=== PATIENT | male | born 1995 | race Caucasian/White ===

== ENCOUNTER 2023-03-12 09:39 | Inpatient (IN) | payer SELFPAY ==
[2023-03-12] MEDS ORDERED: Sodium Chloride 0.9% 10 ML Syringe FLUSH PRN ×2 (09:54→09:57)
[2023-03-12] MEDS ORDERED: Ondansetron 4 MG/2 ML SDV IVPUSH ONE ×2 (09:54→16:16)
[2023-03-12] MEDS ORDERED: Sodium Chloride 0.9% 1,000 ML IV STA (09:54)
[2023-03-12] MEDS ORDERED: HYDROmorphone 1 MG/ML Syringe IVPUSH ONE ×4 (09:55→16:31)
[2023-03-12] MEDS ORDERED: Iopamidol 612 MG/ML 100 ML Bottle IVPUSH ONE ×2 (09:57→15:22)
[2023-03-12 10:02] LABS: BASOPHILS ABSOLUTE AUTO 0.03 K/mm3 (0.01-0.08); BASOPHILS PERCENT AUTO 0.3 % (0.1-1.2); EOSINOPHILS ABSOLUTE AUTO 0.08 K/mm3 (0.04-0.54); EOSINOPHILS PERCENT AUTO 0.7 (0.8-7.0); HEMATOCRIT 50.7 % (40.1-51.0); HEMOGLOBIN 16.9 gm/dl (13.7-17.5); IMMATURE GRAN ABSOLUTE AUTO 0.06 K/mm3 (0.00-0.10); IMMATURE GRAN PERCENT AUTO 0.5 % (<=1.0); LYMPHOCYTES ABSOLUTE AUTO 1.71 K/mm3 (1.32-3.57); LYMPHOCYTES PERCENT AUTO 14.8 % (21.8-53.1); MEAN CORPUSCULAR HEMOGLOBIN 31.4 pg (25.7-32.2); MEAN CORPUSCULAR HGB CONC 33.3 g/dl (32.2-35.5); MEAN CORPUSCULAR VOLUME 94.2 fl (79.0-92.2); MEAN PLATELET VOLUME 9.5 fl (9.4-12.3); MONOCYTES ABSOLUTE AUTO 1.97 K/mm3 (0.30-0.82); NEUTROPHILS ABSOLUTE AUTO 7.74 K/mm3 (1.78-5.38); NEUTROPHILS PERCENT AUTO 66.7 % (34.0-67.9); PLATELET COUNT,PLT 486 K/mm3 (163-337); RED BLOOD CELL COUNT 5.38 M/mm3 (4.63-6.08); WHITE BLOOD CELL COUNT,WBC 11.59 K/mm3 (4.23-9.07)
[2023-03-12 10:22] LABS: A/G RATIO 0.9 (1-2); ALBUMIN 3.7 g/dl (3.4-5.0); ANION GAP 19.8 (5-15); BILIRUBIN TOTAL 0.9 mg/dL (0.2-1.0); BUN/CREATININE RATIO 5.6 (14-18); CALCIUM 9.4 mg/dL (8.5-10.1); CREATININE 0.9 mg/dL (0.7-1.3); EST CRCL DRUG DOSING (CG) 132.93 mL/min; POTASSIUM,K 3.8 mEq/L (3.5-5.1); PROTEIN TOTAL,TP 7.7 g/dl (6.4-8.2)
[2023-03-12 10:59] LABS: SLIDE REVIEW ABNORMAL SMEAR
[2023-03-12] MEDS ORDERED: Metoclopramide 10 MG/2 ML SDV IVPUSH ONE (11:04)
[2023-03-12 12:07] LABS: APPEARANCE,URINE CLEAR (Clear); BILIRUBIN,URINE 1+ (Negative); COLOR,URINE YELLOW (Yellow); GLUCOSE,URINE NEGATIVE (Negative); KETONES,URINE 1+ (Negative); LEUKOCYTE ESTERASE,URINE NEGATIVE (Negative); NITRITE,URINE NEGATIVE (Negative); OCCULT BLOOD,URINE TRACE-INTACT (Negative); PH,URINE 5.5 (5.0-8.0); PROTEIN,URINE 2+ (Negative); UROBILINOGEN,URINE 0.2 (0.2-1.0)
[2023-03-12 12:27] LABS: BACTERIA,URINE FEW /hpf (FEW); MUCUS,URINE MANY /hpf (FEW); RBC,URINE 0-5 /hpf (0-5); SQUAMOUS EPITHELIAL CELLS,UR 0-5 /hpf (0-5); WBC,URINE 0-5 /hpf (0-5)
[2023-03-12] MEDS ORDERED: Sodium Chloride 0.9% 1,000 ML IV ONE (12:46)
[2023-03-12] MEDS ORDERED: fentaNYL 100 MCG/2 ML SDV IVPUSH ONE ×2 (14:29→16:16)
[2023-03-12] MEDS: Lactated Ringers 1,000 ML IV SCH ×2 (14:44→21:49)
[2023-03-12] MEDS ORDERED: Naloxone 0.4 MG/ML SDV IVPUSH PRN (16:39)
[2023-03-12] MEDS ORDERED: HYDROmorphone 1 MG/ML Syringe IVPUSH PRN (16:39)
[2023-03-12] MEDS ORDERED: LORazepam 2 MG/ML SDV IVPUSH ONE (17:15)
[2023-03-12] MEDS: Heparin Sodium 5,000 Units/ML Vial SUBCUT SCH (18:17)
[2023-03-12] MEDS: HYDROmorphone 1 MG/ML Syringe IVPUSH PRN ×2 (20:05→22:45)
[2023-03-12] MEDS: Ondansetron 4 MG/2 ML SDV IV PRN (20:13)
[2023-03-12] MEDS: LORazepam 2 MG/ML SDV IVPUSH PRN (21:53)
[2023-03-13] MEDS: Ondansetron 4 MG/2 ML SDV IV PRN ×3 (00:23→20:40)
[2023-03-13] MEDS: HYDROmorphone 1 MG/ML Syringe IVPUSH PRN ×10 (01:21→23:32)
[2023-03-13] MEDS: Heparin Sodium 5,000 Units/ML Vial SUBCUT SCH ×3 (01:23→17:44)
[2023-03-13] MEDS: LORazepam 2 MG/ML SDV IVPUSH PRN ×5 (03:52→20:40)
[2023-03-13] MEDS ORDERED: Metoprolol Tartrate 25 MG Tab PO ONE (04:10)
[2023-03-13] MEDS: Lactated Ringers 1,000 ML IV SCH ×5 (04:25→23:04)
[2023-03-13 05:31] LABS: BASOPHILS ABSOLUTE AUTO 0.02 K/mm3 (0.01-0.08); BASOPHILS PERCENT AUTO 0.1 % (0.1-1.2); EOSINOPHILS PERCENT AUTO 0 (0.8-7.0); HEMATOCRIT 55.5 % (40.1-51.0); HEMOGLOBIN 18.2 gm/dl (13.7-17.5); IMMATURE GRAN ABSOLUTE AUTO 0.04 K/mm3 (0.00-0.10); IMMATURE GRAN PERCENT AUTO 0.3 % (<=1.0); LYMPHOCYTES ABSOLUTE AUTO 0.99 K/mm3 (1.32-3.57); LYMPHOCYTES PERCENT AUTO 7.1 % (21.8-53.1); MEAN CORPUSCULAR HEMOGLOBIN 31.3 pg (25.7-32.2); MEAN CORPUSCULAR HGB CONC 32.8 g/dl (32.2-35.5); MEAN CORPUSCULAR VOLUME 95.5 fl (79.0-92.2); MEAN PLATELET VOLUME 10.3 fl (9.4-12.3); MONOCYTES ABSOLUTE AUTO 1.89 K/mm3 (0.30-0.82); MONOCYTES PERCENT AUTO 13.5 % (5.3-12.2); NEUTROPHILS ABSOLUTE AUTO 11.04 K/mm3 (1.78-5.38); RED BLOOD CELL COUNT 5.81 M/mm3 (4.63-6.08); WHITE BLOOD CELL COUNT,WBC 13.98 K/mm3 (4.23-9.07)
[2023-03-13 05:38] LABS: PLATELET COUNT,PLT 346 K/mm3 (163-337)
[2023-03-13 06:22] LABS: A/G RATIO 0.8 (1-2); ALBUMIN 2.9 g/dl (3.4-5.0); ANION GAP 14.1 (5-15); BILIRUBIN TOTAL 1.4 mg/dL (0.2-1.0); CALCIUM 9.3 mg/dL (8.5-10.1); EST CRCL DRUG DOSING (CG) 119.63 mL/min; MAGNESIUM 1.4 mg/dL (1.8-2.4); POTASSIUM,K 5.1 mEq/L (3.5-5.1); PROTEIN TOTAL,TP 6.6 g/dl (6.4-8.2)
[2023-03-13 06:29] LABS: SLIDE REVIEW ABNORMAL SMEAR
[2023-03-13] MEDS ORDERED: Losartan 50 MG Tab PO SCH (09:00)
[2023-03-13] MEDS: Pantoprazole 40 MG Tab.CR PO SCH (09:03)
[2023-03-13] MEDS: Losartan 50 MG Tab PO SCH (09:03)
[2023-03-13] MEDS ORDERED: Propranolol 60 MG Cap.ER PO ONE (16:23)
[2023-03-13] MEDS ORDERED: Lactated Ringers 500 ML IV ONE (19:36)
[2023-03-13] MEDS: Venlafaxine 37.5 MG Cap.ER PO SCH (20:03)
[2023-03-14] MEDS: Heparin Sodium 5,000 Units/ML Vial SUBCUT SCH ×3 (01:25→17:58)
[2023-03-14] MEDS: HYDROmorphone 1 MG/ML Syringe IVPUSH PRN ×7 (01:26→20:56)
[2023-03-14] MEDS: LORazepam 2 MG/ML SDV IVPUSH PRN ×4 (01:27→17:58)
[2023-03-14] MEDS: Ondansetron 4 MG/2 ML SDV IV PRN ×4 (01:28→21:06)
[2023-03-14] MEDS: Lactated Ringers 1,000 ML IV SCH ×4 (04:58→22:31)
[2023-03-14 05:23] LABS: BASOPHILS ABSOLUTE AUTO 0.05 K/mm3 (0.01-0.08); BASOPHILS PERCENT AUTO 0.3 % (0.1-1.2); EOSINOPHILS ABSOLUTE AUTO 0.07 K/mm3 (0.04-0.54); EOSINOPHILS PERCENT AUTO 0.5 (0.8-7.0); HEMATOCRIT 43.9 % (40.1-51.0); IMMATURE GRAN PERCENT AUTO 0.7 % (<=1.0); LYMPHOCYTES ABSOLUTE AUTO 1.48 K/mm3 (1.32-3.57); LYMPHOCYTES PERCENT AUTO 10.1 % (21.8-53.1); MEAN CORPUSCULAR HEMOGLOBIN 31.3 pg (25.7-32.2); MEAN CORPUSCULAR HGB CONC 31.4 g/dl (32.2-35.5); MEAN CORPUSCULAR VOLUME 99.5 fl (79.0-92.2); MEAN PLATELET VOLUME 10.6 fl (9.4-12.3); MONOCYTES ABSOLUTE AUTO 1.82 K/mm3 (0.30-0.82); MONOCYTES PERCENT AUTO 12.4 % (5.3-12.2); NEUTROPHILS ABSOLUTE AUTO 11.16 K/mm3 (1.78-5.38); PLATELET COUNT,PLT 285 K/mm3 (163-337); RED BLOOD CELL COUNT 4.41 M/mm3 (4.63-6.08); WHITE BLOOD CELL COUNT,WBC 14.68 K/mm3 (4.23-9.07)
[2023-03-14 05:29] LABS: HEMOGLOBIN 13.8 gm/dl (13.7-17.5)
[2023-03-14 05:51] LABS: A/G RATIO 0.7 (1-2); ALBUMIN 2.3 g/dl (3.4-5.0); ANION GAP 11.2 (5-15); BILIRUBIN TOTAL 1.6 mg/dL (0.2-1.0); CALCIUM 8.5 mg/dL (8.5-10.1); CREATININE 1.4 mg/dL (0.7-1.3); EST CRCL DRUG DOSING (CG) 85.45 mL/min; MAGNESIUM 1.1 mg/dL (1.8-2.4); POTASSIUM,K 4.2 mEq/L (3.5-5.1); PROTEIN TOTAL,TP 5.4 g/dl (6.4-8.2)
[2023-03-14 06:24] LABS: SLIDE REVIEW ABNORMAL SMEAR
[2023-03-14] MEDS: Losartan 50 MG Tab PO SCH (08:24)
[2023-03-14] MEDS: Propranolol 20 MG Tab PO SCH ×2 (08:24→20:54)
[2023-03-14] MEDS: Pantoprazole 40 MG Tab.CR PO SCH (08:24)
[2023-03-14] MEDS ORDERED: Magnesium Sulfate/Water 2 GM in Premix Bag 1 BAG IV ONE (09:00)
[2023-03-14] MEDS: Venlafaxine 37.5 MG Cap.ER PO SCH (20:54)
[2023-03-15] MEDS: HYDROmorphone 1 MG/ML Syringe IVPUSH PRN ×3 (00:25→13:37)
[2023-03-15] MEDS: Heparin Sodium 5,000 Units/ML Vial SUBCUT SCH ×3 (01:11→18:10)
[2023-03-15] MEDS: Lactated Ringers 1,000 ML IV SCH ×3 (02:57→18:10)
[2023-03-15] MEDS: LORazepam 2 MG/ML SDV IVPUSH PRN ×5 (03:23→22:14)
[2023-03-15] MEDS: Ondansetron 4 MG/2 ML SDV IV PRN ×5 (03:24→22:15)
[2023-03-15 05:30] LABS: BASOPHILS ABSOLUTE AUTO 0.03 K/mm3 (0.01-0.08); BASOPHILS PERCENT AUTO 0.3 % (0.1-1.2); EOSINOPHILS ABSOLUTE AUTO 0.16 K/mm3 (0.04-0.54); EOSINOPHILS PERCENT AUTO 1.4 (0.8-7.0); HEMATOCRIT 39.1 % (40.1-51.0); HEMOGLOBIN 12.4 gm/dl (13.7-17.5); IMMATURE GRAN ABSOLUTE AUTO 0.13 K/mm3 (0.00-0.10); IMMATURE GRAN PERCENT AUTO 1.2 % (<=1.0); LYMPHOCYTES ABSOLUTE AUTO 1.36 K/mm3 (1.32-3.57); LYMPHOCYTES PERCENT AUTO 12.1 % (21.8-53.1); MEAN CORPUSCULAR HEMOGLOBIN 31.5 pg (25.7-32.2); MEAN CORPUSCULAR HGB CONC 31.7 g/dl (32.2-35.5); MEAN CORPUSCULAR VOLUME 99.2 fl (79.0-92.2); MEAN PLATELET VOLUME 10.6 fl (9.4-12.3); MONOCYTES ABSOLUTE AUTO 1.35 K/mm3 (0.30-0.82); NEUTROPHILS ABSOLUTE AUTO 8.18 K/mm3 (1.78-5.38); PLATELET COUNT,PLT 241 K/mm3 (163-337); RED BLOOD CELL COUNT 3.94 M/mm3 (4.63-6.08); WHITE BLOOD CELL COUNT,WBC 11.21 K/mm3 (4.23-9.07)
[2023-03-15 06:00] LABS: A/G RATIO 0.6 (1-2); ALBUMIN 2.1 g/dl (3.4-5.0); ANION GAP 7.9 (5-15); BILIRUBIN TOTAL 1.6 mg/dL (0.2-1.0); BUN/CREATININE RATIO 11.1 (14-18); CALCIUM 8.9 mg/dL (8.5-10.1); CREATININE 0.9 mg/dL (0.7-1.3); EST CRCL DRUG DOSING (CG) 132.93 mL/min; MAGNESIUM 1.5 mg/dL (1.8-2.4); POTASSIUM,K 3.9 mEq/L (3.5-5.1); PROTEIN TOTAL,TP 5.4 g/dl (6.4-8.2)
[2023-03-15] MEDS ORDERED: Magnesium Oxide 400 MG Tab PO ONE (07:40)
[2023-03-15] MEDS: Pantoprazole 40 MG Tab.CR PO SCH ×2 (07:56→08:00)
[2023-03-15] MEDS: Acetaminophen/HYDROcodone 325-5 MG Tab PO PRN ×2 (07:56→13:37)
[2023-03-15] MEDS: Losartan 50 MG Tab PO SCH ×2 (07:56→08:00)
[2023-03-15] MEDS: Propranolol 20 MG Tab PO SCH ×3 (07:58→20:04)
[2023-03-15] MEDS ORDERED: Thiamine 100 MG Tab PO ONE (12:30)
[2023-03-15] MEDS ORDERED: Folic Acid 1 MG Tab PO ONE (12:30)
[2023-03-15] MEDS: oxyCODONE 5 MG Tab PO PRN (18:11)
[2023-03-15] MEDS: Venlafaxine 37.5 MG Cap.ER PO SCH (20:04)
[2023-03-16] MEDS: oxyCODONE 5 MG Tab PO PRN ×4 (00:14→19:50)
[2023-03-16] MEDS: Heparin Sodium 5,000 Units/ML Vial SUBCUT SCH ×3 (02:19→18:09)
[2023-03-16] MEDS: Ondansetron 4 MG/2 ML SDV IV PRN ×4 (02:20→19:47)
[2023-03-16] MEDS: Lactated Ringers 1,000 ML IV SCH (03:48)
[2023-03-16 07:51] LABS: BASOPHILS ABSOLUTE AUTO 0.06 K/mm3 (0.01-0.08); BASOPHILS PERCENT AUTO 0.5 % (0.1-1.2); EOSINOPHILS ABSOLUTE AUTO 0.14 K/mm3 (0.04-0.54); EOSINOPHILS PERCENT AUTO 1.1 (0.8-7.0); HEMATOCRIT 36.9 % (40.1-51.0); HEMOGLOBIN 12.3 gm/dl (13.7-17.5); IMMATURE GRAN ABSOLUTE AUTO 0.31 K/mm3 (0.00-0.10); IMMATURE GRAN PERCENT AUTO 2.3 % (<=1.0); LYMPHOCYTES ABSOLUTE AUTO 1.28 K/mm3 (1.32-3.57); LYMPHOCYTES PERCENT AUTO 9.6 % (21.8-53.1); MEAN CORPUSCULAR HEMOGLOBIN 31.5 pg (25.7-32.2); MEAN CORPUSCULAR HGB CONC 33.3 g/dl (32.2-35.5); MEAN PLATELET VOLUME 9.6 fl (9.4-12.3); MONOCYTES ABSOLUTE AUTO 2.12 K/mm3 (0.30-0.82); MONOCYTES PERCENT AUTO 15.9 % (5.3-12.2); NEUTROPHILS ABSOLUTE AUTO 9.42 K/mm3 (1.78-5.38); NEUTROPHILS PERCENT AUTO 70.6 % (34.0-67.9); PLATELET COUNT,PLT 216 K/mm3 (163-337); RED BLOOD CELL COUNT 3.91 M/mm3 (4.63-6.08); WHITE BLOOD CELL COUNT,WBC 13.33 K/mm3 (4.23-9.07)
[2023-03-16 07:54] LABS: MEAN CORPUSCULAR VOLUME 94.4 fl (79.0-92.2)
[2023-03-16] MEDS: Pantoprazole 40 MG Tab.CR PO SCH (08:13)
[2023-03-16] MEDS: Propranolol 20 MG Tab PO SCH ×2 (08:14→20:56)
[2023-03-16] MEDS: Losartan 50 MG Tab PO SCH (08:14)
[2023-03-16 08:20] LABS: A/G RATIO 0.6 (1-2); ALBUMIN 2.2 g/dl (3.4-5.0); ANION GAP 10.5 (5-15); BILIRUBIN TOTAL 1.4 mg/dL (0.2-1.0); BUN/CREATININE RATIO 4.4 (14-18); CALCIUM 8.4 mg/dL (8.5-10.1); CREATININE 0.9 mg/dL (0.7-1.3); EST CRCL DRUG DOSING (CG) 132.93 mL/min; MAGNESIUM 1.4 mg/dL (1.8-2.4); POTASSIUM,K 3.5 mEq/L (3.5-5.1); PROTEIN TOTAL,TP 5.7 g/dl (6.4-8.2)
[2023-03-16 08:45] LABS: SLIDE REVIEW ABNORMAL SMEAR
[2023-03-16] MEDS ORDERED: Magnesium Sulfate/Water 4 GM in Premix Bag 1 BAG IV ONE (10:30)
[2023-03-16] MEDS: Docusate Sodium 100 MG Cap PO PRN (10:31)
[2023-03-16] MEDS: Sodium Chloride 0.9% 1,000 ML IV SCH ×2 (10:31→20:55)
[2023-03-16] MEDS: Cholecalciferol (Vitamin D3) 25 MCG Tab PO SCH (20:56)
[2023-03-16] MEDS: Folic Acid 1 MG Tab PO SCH (20:56)
[2023-03-16] MEDS: Thiamine 100 MG Tab PO SCH (20:56)
[2023-03-16] MEDS: QUEtiapine 25 MG Tab PO SCH (20:56)
[2023-03-16] MEDS: fluvoxaMINE 50 MG Tab PO SCH (20:56)
[2023-03-16] MEDS: Topiramate 25 MG Tab PO SCH (20:56)
[2023-03-17] MEDS: oxyCODONE 5 MG Tab PO PRN ×3 (02:28→13:38)
[2023-03-17] MEDS: Heparin Sodium 5,000 Units/ML Vial SUBCUT SCH ×3 (02:28→17:58)
[2023-03-17 06:08] LABS: BASOPHILS ABSOLUTE AUTO 0.08 K/mm3 (0.01-0.08); BASOPHILS PERCENT AUTO 0.6 % (0.1-1.2); EOSINOPHILS ABSOLUTE AUTO 0.16 K/mm3 (0.04-0.54); EOSINOPHILS PERCENT AUTO 1.2 (0.8-7.0); HEMATOCRIT 38.1 % (40.1-51.0); HEMOGLOBIN 12.6 gm/dl (13.7-17.5); IMMATURE GRAN PERCENT AUTO 7.7 % (<=1.0); LYMPHOCYTES ABSOLUTE AUTO 1.53 K/mm3 (1.32-3.57); LYMPHOCYTES PERCENT AUTO 11.8 % (21.8-53.1); MEAN CORPUSCULAR HEMOGLOBIN 31.2 pg (25.7-32.2); MEAN CORPUSCULAR HGB CONC 33.1 g/dl (32.2-35.5); MEAN CORPUSCULAR VOLUME 94.3 fl (79.0-92.2); MEAN PLATELET VOLUME 10.4 fl (9.4-12.3); MONOCYTES ABSOLUTE AUTO 2.45 K/mm3 (0.30-0.82); MONOCYTES PERCENT AUTO 18.9 % (5.3-12.2); NEUTROPHILS ABSOLUTE AUTO 7.73 K/mm3 (1.78-5.38); NEUTROPHILS PERCENT AUTO 59.8 % (34.0-67.9); PLATELET COUNT,PLT 238 K/mm3 (163-337); RED BLOOD CELL COUNT 4.04 M/mm3 (4.63-6.08); WHITE BLOOD CELL COUNT,WBC 12.95 K/mm3 (4.23-9.07)
[2023-03-17 06:30] LABS: ANION GAP 13.3 (5-15); BUN/CREATININE RATIO 4.4 (14-18); CALCIUM 8.3 mg/dL (8.5-10.1); CREATININE 0.9 mg/dL (0.7-1.3); EST CRCL DRUG DOSING (CG) 132.93 mL/min; POTASSIUM,K 3.3 mEq/L (3.5-5.1)
[2023-03-17 06:42] LABS: SLIDE REVIEW ABNORMAL SMEAR
[2023-03-17] MEDS: Cholecalciferol (Vitamin D3) 25 MCG Tab PO SCH ×2 (08:19→20:02)
[2023-03-17] MEDS: Propranolol 20 MG Tab PO SCH ×2 (08:19→20:02)
[2023-03-17] MEDS: Losartan 50 MG Tab PO SCH (08:19)
[2023-03-17] MEDS: Topiramate 25 MG Tab PO SCH ×2 (08:19→20:02)
[2023-03-17] MEDS: Pantoprazole 40 MG Tab.CR PO SCH (08:20)
[2023-03-17] MEDS: Docusate Sodium 100 MG Cap PO PRN (08:20)
[2023-03-17] MEDS: Sodium Chloride 0.9% 1,000 ML IV SCH ×2 (08:27→19:58)
[2023-03-17] MEDS: Potassium Chloride 20 MEQ Tab.ER PO SCH ×2 (09:20→20:01)
[2023-03-17] MEDS: Ondansetron 4 MG/2 ML SDV IV PRN ×2 (11:08→23:10)
[2023-03-17] MEDS ORDERED: Naloxone 0.4 MG/ML SDV IVPUSH PRN (15:34)
[2023-03-17] MEDS: Morphine 2 MG/ML SYRINGE IVPUSH PRN ×2 (15:59→20:11)
[2023-03-17] MEDS ORDERED: Piperacillin/Tazobactam 4.5 GM in Sodium Chloride 0.9% 100 ML IV ONE (16:00)
[2023-03-17] MEDS: Folic Acid 1 MG Tab PO SCH (20:01)
[2023-03-17] MEDS: Thiamine 100 MG Tab PO SCH (20:01)
[2023-03-17] MEDS: fluvoxaMINE 50 MG Tab PO SCH (20:02)
[2023-03-17] MEDS: QUEtiapine 25 MG Tab PO SCH (20:02)
[2023-03-18] MEDS ORDERED: Piperacillin/Tazobactam 4.5 GM in Sodium Chloride 0.9% 100 ML IV SCH ×2
[2023-03-18] MEDS: Morphine 2 MG/ML SYRINGE IVPUSH PRN ×4 (00:35→14:26)
[2023-03-18] MEDS: LORazepam 2 MG/ML SDV IVPUSH PRN ×3 (00:39→14:26)
[2023-03-18] MEDS: Heparin Sodium 5,000 Units/ML Vial SUBCUT SCH ×3 (01:21→17:00)
[2023-03-18] MEDS: Ondansetron 4 MG/2 ML SDV IV PRN ×3 (06:05→17:27)
[2023-03-18] MEDS: Sodium Chloride 0.9% 1,000 ML IV SCH (07:00)
[2023-03-18] MEDS ORDERED: Iopamidol 612 MG/ML 100 ML Bottle IVPUSH ONE (07:03)
[2023-03-18] MEDS ORDERED: Sodium Chloride 0.9% 10 ML Syringe FLUSH ONE (07:03)
[2023-03-18] MEDS: metroNIDAZOLE/Normal Saline 500 MG in Premix Bag 1 BAG IV SCH ×2 (08:17→15:55)
[2023-03-18] MEDS: Topiramate 25 MG Tab PO SCH (08:17)
[2023-03-18] MEDS: Cefepime 2 GM in Sodium Chloride 0.9% 50 ML IV SCH ×2 (08:17→15:54)
[2023-03-18] MEDS: Pantoprazole 40 MG Tab.CR PO SCH (08:17)
[2023-03-18] MEDS: Potassium Chloride 20 MEQ Tab.ER PO SCH (08:17)
[2023-03-18] MEDS: Propranolol 20 MG Tab PO SCH (08:18)
[2023-03-18] MEDS: Cholecalciferol (Vitamin D3) 25 MCG Tab PO SCH (08:18)
[2023-03-18] MEDS: Losartan 50 MG Tab PO SCH (08:18)
[2023-03-18 08:25] LABS: BASOPHILS ABSOLUTE AUTO 0.13 K/mm3 (0.01-0.08); BASOPHILS PERCENT AUTO 0.8 % (0.1-1.2); EOSINOPHILS ABSOLUTE AUTO 0.22 K/mm3 (0.04-0.54); EOSINOPHILS PERCENT AUTO 1.4 (0.8-7.0); HEMATOCRIT 38.8 % (40.1-51.0); IMMATURE GRAN ABSOLUTE AUTO 1.76 K/mm3 (0.00-0.10); IMMATURE GRAN PERCENT AUTO 11.3 % (<=1.0); LYMPHOCYTES ABSOLUTE AUTO 1.56 K/mm3 (1.32-3.57); MEAN CORPUSCULAR HEMOGLOBIN 31.1 pg (25.7-32.2); MEAN CORPUSCULAR HGB CONC 33.5 g/dl (32.2-35.5); MEAN CORPUSCULAR VOLUME 92.8 fl (79.0-92.2); MEAN PLATELET VOLUME 9.7 fl (9.4-12.3); MONOCYTES ABSOLUTE AUTO 2.69 K/mm3 (0.30-0.82); MONOCYTES PERCENT AUTO 17.3 % (5.3-12.2); NEUTROPHILS ABSOLUTE AUTO 9.18 K/mm3 (1.78-5.38); NEUTROPHILS PERCENT AUTO 59.2 % (34.0-67.9); PLATELET COUNT,PLT 252 K/mm3 (163-337); RED BLOOD CELL COUNT 4.18 M/mm3 (4.63-6.08); WHITE BLOOD CELL COUNT,WBC 15.54 K/mm3 (4.23-9.07)
[2023-03-18 08:47] LABS: ANION GAP 16.9 (5-15); BUN/CREATININE RATIO 3.3 (14-18); CALCIUM 8.4 mg/dL (8.5-10.1); CREATININE 0.9 mg/dL (0.7-1.3); EST CRCL DRUG DOSING (CG) 132.93 mL/min; POTASSIUM,K 3.9 mEq/L (3.5-5.1)
[2023-03-18] MEDS ORDERED: Metoclopramide 10 MG/2 ML SDV IVPUSH ONE ×2 (08:53→17:22)
[2023-03-18] MEDS: oxyCODONE 5 MG Tab PO PRN ×2 (09:09→16:49)
[2023-03-18] MEDS ORDERED: Morphine 4 MG/ML Syringe IVPUSH ONE (14:55)
[2023-03-18] MEDS ORDERED: HYDROmorphone 1 MG/ML Syringe IVPUSH ONE (18:00)
[2023-03-18] MEDS ORDERED: Sodium Chloride 0.9% 1,000 ML IV SCH (18:15)
== END 2023-03-18 18:41 | DRG 439 ==
LOC: JD.ED 09:39 → JD.MS 16:39 → JD.ICU 03-13 09:19
PROVIDERS: ADMIT Internal Medicine; ATTEND Internal Medicine
DX: K85.22 Alcohol induced acute pancreatitis with infected necrosis (principal); F10.239 Alcohol dependence with withdrawal, unspecified; F32.2 Major depressive disorder, single episode, severe without psychotic features; F42.2 Mixed obsessional thoughts and acts; G47.00 Insomnia, unspecified; F41.9 Anxiety disorder, unspecified; E86.0 Dehydration; K52.9 Noninfective gastroenteritis and colitis, unspecified; I10 Essential (primary) hypertension; E87.8 Other disorders of electrolyte and fluid balance, not elsewhere classified; Z79.899 Other long term (current) drug therapy
CPT/HCPCS: 36415; 51798; 74150; 74150-26; 74177; 74177-26; 80048; 80053; 81001; 83690; 83735; 85025; 96361; 96374; 96375; 96376; 97116-GP; 97161-GP; 99223; 99232; 99233; 99239; 99285-25; A9270-GY; J0692; J1170; J1644; J2060; J2270; J2405; J2543; J2765; J3010; J3475; J3490; J7030; J7120; Q9967

== ENCOUNTER 2023-05-24 12:26 | Emergency (ER) | payer SELFPAY ==
[2023-05-24] MEDS ORDERED: Ondansetron 4 MG/2 ML SDV IVPUSH ONE (13:39)
[2023-05-24] MEDS ORDERED: Sodium Chloride 0.9% 1,000 ML IV ONE (13:39)
[2023-05-24] MEDS ORDERED: HYDROmorphone 0.5 MG/0.5 ML Syringe IVPUSH ONE (13:39)
[2023-05-24 14:03] LABS: BASOPHILS PERCENT AUTO 0.7 % (0.0-1.0); HEMATOCRIT 45.9 % (42.0-52.0); HEMOGLOBIN 15.6 gm/dl (14.0-18.0); IMMATURE GRAN ABSOLUTE AUTO 0.02 K/mm3 (0.00-0.05); IMMATURE GRAN PERCENT AUTO 0.3 % (0.0-0.4); LYMPHOCYTES ABSOLUTE AUTO 1.5 K/mm3 (1.0-4.8); MEAN CORPUSCULAR HEMOGLOBIN 30.1 pg (28.0-32.0); MEAN CORPUSCULAR VOLUME 88.6 fl (83.0-99.0); MEAN PLATELET VOLUME 8.6 fl (9.4-12.4); MONOCYTES ABSOLUTE AUTO 0.4 K/mm3 (0.0-0.8); MONOCYTES PERCENT AUTO 6.1 % (0.0-8.0); NEUTROPHILS ABSOLUTE AUTO 4.1 K/mm3 (1.8-7.7); NEUTROPHILS PERCENT AUTO 67.9 % (41.0-71.0); PLATELET COUNT,PLT 241 K/mm3 (150-400); RED BLOOD CELL COUNT 5.18 M/mm3 (4.52-5.90); WHITE BLOOD CELL COUNT,WBC 6.03 K/mm3 (3.9-11.3)
[2023-05-24 14:23] LABS: A/G RATIO 1.1 (1-2); ALANINE AMINOTRANSFERASE,ALT 26 U/L (16-63); ALBUMIN 4.4 g/dl (3.4-5.0); ALKALINE PHOSPHATASE 111 U/L (46-116); ANION GAP 18.7 (5-15); ASPARTATE AMNIOTRANSFERASE,AST 39 U/L (15-37); BILIRUBIN TOTAL 0.9 mg/dL (0.2-1.0); BLOOD UREA NITROGEN,BUN 9 mg/dL (7-18); C-REACTIVE PROTEIN <0.2 mg/dL (<1.0); CALCIUM 9.8 mg/dL (8.5-10.1); CARBON DIOXIDE,CO2 24 mEq/L (21-32); CHLORIDE,CL 103 mEq/L (98-107); EST CRCL DRUG DOSING (CG) 119.63 mL/min; ESTIMATED GFR 104 mL/min (>60); GLUCOSE RANDOM 91 mg/dL (70-99); LIPASE 53 U/L (73-393); POTASSIUM,K 3.7 mEq/L (3.5-5.1); PROTEIN TOTAL,TP 8.5 g/dl (6.4-8.2); SODIUM,NA 142 mEq/L (136-145)
[2023-05-24] MEDS ORDERED: Metoclopramide 10 MG/2 ML SDV IVPUSH ONE (14:40)
[2023-05-24] MEDS ORDERED: Aluminum Hydroxide/Magnesium Hydroxide/Simethicone Susp 30 ML Cup PO ONE (14:40)
[2023-05-24] MEDS ORDERED: Lidocaine 2% 11 ML Jelly Filled Syringe MUCMEM ONE (14:41)
== END 2023-05-24 17:02 | disposition home or self-care (01) ==
LOC: JD.ED 12:26
DX: R11.14 Bilious vomiting (principal); F10.10 Alcohol abuse, uncomplicated; I10 Essential (primary) hypertension; Z87.891 Personal history of nicotine dependence; Z79.899 Other long term (current) drug therapy
CPT/HCPCS: 36415; 80053; 83690; 85025; 86140; 96361; 96374; 96375; 99284; A9270; J1170; J2405; J2765; J7030